=== PATIENT | female | born 1965 | race African-American/Black ===

== ENCOUNTER 2016-09-05 14:59 | Inpatient (IN) ==
[2016-09-05] MEDS ORDERED: NARCAN ONE ×2 (15:00)
[2016-09-05] MEDS ORDERED: AMMONIA AROMATIC ONE ×3 (15:00→15:26)
[2016-09-05 15:42] LABS: BE 1.7 mmoll (-3.0-3.0); BLOOD TYPE ARTERIAL; DRAW SITE R RADIAL; METHB 0.8 % (0.0-1.5); O2(CT) 16.5 mL/dL (15.0-23.0); PCO2(98.6) 45 mmHg (35-45); PO2(98.6) 50 mmHg (60-100); SAMPLE BLOOD; SAO2 87.1 % (95.0-100.0); THB 13.9 g/dL (11.5-17.4); pH(98.6) 7.39 (7.35-7.45)
[2016-09-05 15:43] LABS: BASO% 0.6 % (0.0-0.8); EOS# 0.16 X1000 (0.0-0.7); EOS% 1.6 % (0.0-10.0); HEMATOCRIT 43.2 % (37.0-47.0); HEMOGLOBIN 13.7 g/dL (12.0-16.0); IMM GRAN# 0.03 X1000 (0.0-0.04); IMM GRAN% 0.3 % (0.0-0.5); LYMPH# 1.58 X1000 (1.2-3.4); LYMPH% 15.9 % (20.5-51.1); MANUAL DIFF NEEDED? NO; MCH 22.8 PG (27-31); MCHC 31.7 g/dL (33-37); MONO# 0.72 X1000 (0.11-0.59); MONO% 7.2 % (1.7-9.3); MPV 11.5 FL (7.4-10.4); NEUT% 74.4 % (42.2-75.2); PLT 337 X1000 (130-400)
[2016-09-05 15:54] LABS: MODALITY ROOM AIR
[2016-09-05 16:00] LABS: INR 0.99 (0.86-1.15); PROTIME 13.4 Seconds (12.1-15.5)
[2016-09-05 16:01] LABS: PTT PL 33.1 Seconds (22.6-43.9)
[2016-09-05 16:05] LABS: CALCIUM 9.6 mg/dL (8.8-10.2); POTASSIUM 3.4 mmol/L (3.5-5.1); TOTAL BILIRUBIN 0.4 mg/dL (0.20-1.00); TOTAL PROTEIN 7.5 g/dL (6.3-8.3)
--- NOTE | 2016-09-05 16:14 | Diag Imaging Result Doc PS360 ---
EXAM: CHEST-1 VIEW - 09/05/2016 HISTORY: AMS TECHNIQUE: AP supine chest COMPARISON: 10/19/2015 FINDINGS: Heart size is normal. There is apparent bilateral pulmonary fibrosis similar to the prior exam. There is apparent artifact from external tubing over the lateral left midlung. There is no dense consolidation, pleural effusion, or pneumothorax identified. IMPRESSION: Bilateral pulmonary fibrosis. Apparent artifact from external tubing over lateral left midlung. Follow-up is recommended when patient's condition permits. No other acute changes. Electronically signed by Davidson Bond 09/05/2016 4:11 PM
[2016-09-05 16:19] LABS: CK INDEX 1.8 (0.0-2.5); CK-MB 24.76 ng/mL (0.0-5.0)
--- NOTE | 2016-09-05 16:19 | Diag Imaging Result Doc PS360 ---
EXAM: HEAD W/O CONTRAST - 09/05/2016 HISTORY: AMS TECHNIQUE: Dose reduction protocol COMPARISON: 06/12/2016 FINDINGS: There is no evidence of intracranial hemorrhage, mass effect, midline shift, or hydrocephalus. There is no infarct identified, although acute infarcts may not be immediately visible. There is no skull fracture. Visualized portions of paranasal sinuses appear clear. There is apparent chronic opacification of the inferior portion of the left middle ear noted. IMPRESSION: No visible acute intracranial abnormality. No hemorrhage or mass effect. Electronically signed by Davidson Bond 09/05/2016 4:17 PM
[2016-09-05] MEDS ORDERED: ROMAZICON IV ONE (16:46)
[2016-09-05] MEDS ORDERED: ROMAZICON ONE (16:48)
[2016-09-05 17:22] LABS: URINE CULTURE PL NEEDED? NO
[2016-09-05 17:47] LABS: UR AMPHETAMINES QUAL NONE DETECTED (NONE DETECT); UR BARBITUATES QUAL NONE DETECTED (NONE DETECT); UR BENZODIAZEPIN QUAL NONE DETECTED (NONE DETECT); UR CANNABINOIDS QUAL NONE DETECTED (NONE DETECT); UR COCAINE QUAL NONE DETECTED (NONE DETECT); UR MDMA QUAL NONE DETECTED (NONE DETECT); UR METHADONE QUAL NONE DETECTED (NONE DETECT); UR METHAMPHETAMINE QUAL NONE DETECTED (NONE DETECT); UR OPIATES QUAL NONE DETECTED (NONE DETECT); UR OXYCODONE QUAL NONE DETECTED (NONE DETECT); UR PCP QUAL NONE DETECTED (NONE DETECT); UR TCA QUAL NONE DETECTED (NONE DETECT)
[2016-09-05 17:48] LABS: BILIRUBIN URINE NEGATIVE (NEGATIVE); BLOOD URINE NEGATIVE (NEGATIVE); CLARITY CLEAR (CLEAR); COLOR YELLOW; GLUCOSE URINE NEGATIVE (NEGATIVE); LEUKOCYTES URINE NEGATIVE (NEGATIVE); NITRITE URINE NEGATIVE (NEGATIVE); PROTEIN URINE NEGATIVE (NEGATIVE); SP GRAVITY URINE 1.015; UROBILINOGEN URINE NORMAL
[2016-09-05 18:10] LABS: URINE EPITHELIAL CELLS <10 /HPF (<10); URINE RBC <10 /HPF (<10); URINE SOURCE CLEAN CATCH; URINE WBC <10 /HPF (<10)
--- NOTE | 2016-09-05 18:12 | PROVIDER DOCUMENTATION ---
This chart was entered by Yaritza Wellington Scribe, acting as scribe for Cecelia Zacarias MD. HPI-Neurological Disorder - General Chief Complaint: Altered Mental Status Stated Complaint: ams Time Seen by Provider: 09/05/16 15:14 Source: patient Allergies/Adverse Reactions: Patient Allergies Allergy/AdvReac Type Severity Reaction Status Date / Time butorphanol tartrate * Allergy Mild ITCHING Verified 06/12/16 01:18 [From Stadol] Home Medications: Home Medication List Medication Instructions Recorded Confirmed Last Taken Type Duloxetine [Cymbalta] 60 mg PO DAILY 12/04/11 09/05/16 10/19/15 06:00 History Carvedilol [Coreg] 12.5 mg PO BID 02/26/12 09/05/16 10/19/15 06:00 History Promethazine [Phenergan] 25 mg PO Q4H PRN PRN 12/01/14 09/05/16 09/11/15 07:00 History Baclofen 10 mg PO BID #0 09/14/15 09/05/16 10/19/15 06:00 Rx Linaclotide [Linzess] 145 mcg PO DAILY 10/19/15 09/05/16 03/19/16 History Buprenorphine HCl [Subutex] 8 mg SL TID #0 10/23/15 09/05/16 10/19/15 06:00 Rx Spironolactone [Aldactone] 25 mg PO DAILY #30 tablet 10/23/15 09/05/16 Unknown Rx Clonazepam [Klonopin] 1 mg PO TID 03/20/16 09/05/16 Unknown History Cyclobenzaprine [Flexeril] 10 mg PO TID 03/20/16 09/05/16 Unknown History Furosemide [Lasix] 40 mg PO DAILY 03/20/16 09/05/16 05/25/16 08:00 History Ipratropium/Albuterol INH 1 puff INH [id number] 03/20/16 09/05/16 Unknown History [Combivent Respimat Inhaler] Naproxen 500 mg PO BID 03/20/16 09/05/16 05/25/16 08:00 History Ranitidine [Zantac] 150 mg PO BID 03/20/16 09/05/16 Unknown History Ropinirole HCl 0.5 mg PO QHS 03/20/16 09/05/16 Unknown History Sildenafil [Revatio] 20 mg PO TID 03/20/16 09/05/16 Unknown History Prednisone [Deltasone] 20 mg PO DIRECTED #12 tablet 05/25/16 09/05/16 Unknown Rx Potassium Chloride E.r. [Micro-K] 10 meq PO TID 09/05/16 09/05/16 Unknown History - History of Present Illness-Neuro Nature of Presenting Problem: Pt is 50 y/o F presents to the ED with AMS. Pt was woke with ammonia in ED. Pt is confused. Pt states she took some subutex. Pt also stated she was taking turkey legs. Pt denies marijuana and meth. Headache Location: denies: frontal, temporal, occipital, parietal, global Severity: reports: moderate Onset/Duration: reports: just prior to arrival Timing: reports: improving Context: reports: other (AMS) Character of Altered Mental Status: reports: confused Any recent trauma/injury?: reports: none New weakness or altered sensation location:: reports: none Cognitive Baseline: alert, oriented x3 Gait Baseline: walks without assistance Associated Symptoms: reports: denies symptoms Similar Symptoms Previously?: Yes Recently seen or treated by another doctor?: No Review of Systems - Adult - REVIEW OF SYSTEMS - ADULT Constitutional: reports: no symptoms reported Eyes: reports: no symptoms reported Ears, Nose, Mouth & Throat: reports: no symptoms reported Cardiovascular: reports: no symptoms reported Respiratory: reports: no symptoms reported Gastrointestinal: reports: no symptoms reported Genitourinary: reports: no symptoms reported Musculoskeletal: reports: no symptoms reported Integumentary: reports: no symptoms reported Neurological: reports: other (AMS). denies: dizziness/vertigo, headache/ migraines, numbness, syncope Psychiatric: reports: no symptoms reported Endocrine: reports: no symptoms reported Hematologic/Lymphatic: reports: no symptoms reported Allergic/Immunologic: reports: no symptoms reported All Other Systems: Reviewed and Negative Past History - Adult - PAST MEDICAL HISTORY-ADULT Review of Records: reports: Nursing Assessment Review, Medications Reviewed, Social history reviewed & non-contributory. Major Childhood Illnesses: reports: denies history Cardiovascular: reports: CHF, HTN, hyperlipidemia Respiratory: reports: asthma, COPD, lung disease, sleep apnea, other ( sarcoidosis, pulmonary fibrosis) Gastrointestinal: reports: GERD, hemorrhoids Obstetrical/Gynecological: reports: denies history Genitourinary: reports: denies history Musculoskeletal: reports: other (fibromyalgia) Neurological: reports: denies history Psychiatric: reports: anxiety, depression Endocrine/Immune: reports: denies history Other Conditions: reports: denies history - PRIOR SURGERIES/PROCEDURES Surgical/Procedure History: reports: cholecystectomy, hysterectomy - PRIOR HOSPITALIZATIONS Prior Hospitalizations: reports: for similar symptoms - IMMUNIZATION STATUS Childhood Immunizations: See Nurse Assessment Flu Vaccine: See Nurse Assessment - FAMILY HISTORY Family History: reviewed, not pertinent - SOCIAL HISTORY Smoking: cigarettes, less than 1 pack/day Provider spent 3-5 mins advising pt. on dangers of tobacco.: Discussed manners to quit use, and f/u contacts for add'l counseling. 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 negative: aphasia, facial droop Integumentary: normal color, normal turgor, warm/dry Psych/Mental Status: disheveled, paranoid Progress - PLAN OF CARE/RESULTS Progress/Plan/Lab Results: Vital Signs - 8 hr 09/05/16 15:00 Temperature 97.1 F L Pulse Rate 98 H Respiratory Rate 20 Blood Pressure 137/85 O2 Sat by Pulse Oximetry 95 Laboratory Results - last 24 hr 09/05/16 09/05/16 09/05/16 15:02 15:20 15:20 WBC RBC Hgb Hct MCV MCH MCHC RDW Std Deviation Plt Count MPV Immature Gran % (Auto) Neut % (Auto) Lymph % (Auto) Hayes % (Auto) Eos % (Auto) Baso % (Auto) Immature Gran # (Auto) Neut # (Auto) Lymph # (Auto) Hayes # (Auto) Eos # (Auto) Baso # (Auto) PT INR APTT (Factor Assay) Specimen Type Sample Site pH pCO2 pO2 HCO3 Base Excess Oxyhemoglobin ABG O2 Sat (Calculated) ABG O2 Saturation ABG Carboxyhemoglobin ABG Methemoglobin A-a O2 Difference Total Hemoglobin Lactate Blood Gas Modality FiO2 % Sodium 143 Potassium 3.4 L Chloride 96 L Carbon Dioxide 27 Anion Gap 20 BUN 25 H Creatinine 1.5 H Estimated GFR/1.73 m2 36 BUN/Creatinine Ratio 17 Glucose 92 POC Glucose 91 Calculated Osmolality 289 Calcium 9.6 Total Bilirubin 0.40 AST 49 H ALT 26 Alkaline Phosphatase 164 H Creatine Kinase 1401 H Creatine Kinase Index 1.8 CK-MB (CK-2) 24.76 H Troponin T < 0.010 Total Protein 7.5 Albumin 4.0 Globulin 4.0 Albumin/Globulin Ratio 1.0 Plasma Lactate Urine Color Urine Clarity Urine pH Ur Specific [place] Urine Protein Urine Ketones Urine Blood Urine Nitrite Urine Bilirubin Urine Urobilinogen Urine WBC Urine Glucose Urine Opiates Screen Ur Oxycodone Screen Urine Methadone Screen Ur Barbituates Screen Ur Tricyclics Screen Ur Phencyclidine Scrn Ur Amphetamines Screen U Methamphetamines Scrn Urine MDMA Screen U Benzodiazepines Scrn Urine Cocaine Screen U Cannabinoids Screen Plasma/Serum Ethyl Alc 09/05/16 09/05/16 09/05/16 15:20 15:20 15:20 WBC 9.96 RBC 6.00 H Hgb 13.7 Hct 43.2 MCV 72.0 L MCH 22.8 L MCHC 31.7 L RDW Std Deviation 14.5 Plt Count 337 MPV 11.5 H Immature Gran % (Auto) 0.3 Neut % (Auto) 74.4 Lymph % (Auto) 15.9 L Hayes % (Auto) 7.2 Eos % (Auto) 1.6 Baso % (Auto) 0.6 Immature Gran # (Auto) 0.03 Neut # (Auto) 7.41 H Lymph # (Auto) 1.58 Hayes # (Auto) 0.72 H Eos # (Auto) 0.16 Baso # (Auto) 0.06 PT 13.4 INR 0.99 APTT (Factor Assay) 33.1 Specimen Type Sample Site pH pCO2 pO2 HCO3 Base Excess Oxyhemoglobin ABG O2 Sat (Calculated) ABG O2 Saturation ABG Carboxyhemoglobin ABG Methemoglobin A-a O2 Difference Total Hemoglobin Lactate Blood Gas Modality FiO2 % Sodium Potassium Chloride Carbon Dioxide Anion Gap BUN Creatinine Estimated GFR/1.73 m2 BUN/Creatinine Ratio Glucose POC Glucose Calculated Osmolality Calcium Total Bilirubin AST ALT Alkaline Phosphatase Creatine Kinase Creatine Kinase Index CK-MB (CK-2) Troponin T Total Protein Albumin Globulin Albumin/Globulin Ratio Plasma Lactate Urine Color Urine Clarity Urine pH Ur Specific [place] Urine Protein Urine Ketones Urine Blood Urine Nitrite Urine Bilirubin Urine Urobilinogen Urine WBC Urine Glucose Urine Opiates Screen Ur Oxycodone Screen Urine Methadone Screen Ur Barbituates Screen Ur Tricyclics Screen Ur Phencyclidine Scrn Ur Amphetamines Screen U Methamphetamines Scrn Urine MDMA Screen U Benzodiazepines Scrn Urine Cocaine Screen U Cannabinoids Screen Plasma/Serum Ethyl Alc 09/05/16 09/05/16 09/05/16 15:33 16:17 17:21 WBC RBC Hgb Hct MCV MCH MCHC RDW Std Deviation Plt Count MPV Immature Gran % (Auto) Neut % (Auto) Lymph % (Auto) Hayes % (Auto) Eos % (Auto) Baso % (Auto) Immature Gran # (Auto) Neut # (Auto) Lymph # (Auto) Hayes # (Auto) Eos # (Auto) Baso # (Auto) PT INR APTT (Factor Assay) Specimen Type ARTERIAL Sample Site R RADIAL pH 7.39 pCO2 45 pO2 50 L HCO3 25.9 Base Excess 1.7 Oxyhemoglobin 84.5 L* ABG O2 Sat (Calculated) 16.5 ABG O2 Saturation 87.1 L ABG Carboxyhemoglobin 2.20 ABG Methemoglobin 0.8 A-a O2 Difference 43.0 Total Hemoglobin 13.9 Lactate 1.10 Blood Gas Modality ROOM AIR FiO2 % 21.0 Sodium Potassium Chloride Carbon Dioxide Anion Gap BUN Creatinine Estimated GFR/1.73 m2 BUN/Creatinine Ratio Glucose POC Glucose Calculated Osmolality Calcium Total Bilirubin AST ALT Alkaline Phosphatase Creatine Kinase Creatine Kinase Index CK-MB (CK-2) Troponin T Total Protein Albumin Globulin Albumin/Globulin Ratio Plasma Lactate 1.2 Urine Color YELLOW Urine Clarity CLEAR Urine pH 5.0 Ur Specific [place] 1.015 Urine Protein NEGATIVE Urine Ketones TRACE Urine Blood NEGATIVE Urine Nitrite NEGATIVE Urine Bilirubin NEGATIVE Urine Urobilinogen NORMAL Urine WBC NEGATIVE Urine Glucose NEGATIVE Urine Opiates Screen Ur Oxycodone Screen Urine Methadone Screen Ur Barbituates Screen Ur Tricyclics Screen Ur Phencyclidine Scrn Ur Amphetamines Screen U Methamphetamines Scrn Urine MDMA Screen U Benzodiazepines Scrn Urine Cocaine Screen U Cannabinoids Screen Plasma/Serum Ethyl Alc 09/05/16 17:21 WBC RBC Hgb Hct MCV MCH MCHC RDW Std Deviation Plt Count MPV Immature Gran % (Auto) Neut % (Auto) Lymph % (Auto) Hayes % (Auto) Eos % (Auto) Baso % (Auto) Immature Gran # (Auto) Neut # (Auto) Lymph # (Auto) Hayes # (Auto) Eos # (Auto) Baso # (Auto) PT INR APTT (Factor Assay) Specimen Type Sample Site pH pCO2 pO2 HCO3 Base Excess Oxyhemoglobin ABG O2 Sat (Calculated) ABG O2 Saturation ABG Carboxyhemoglobin ABG Methemoglobin A-a O2 Difference Total Hemoglobin Lactate Blood Gas Modality FiO2 % Sodium Potassium Chloride Carbon Dioxide Anion Gap BUN Creatinine Estimated GFR/1.73 m2 BUN/Creatinine Ratio Glucose POC Glucose Calculated Osmolality Calcium Total Bilirubin AST ALT Alkaline Phosphatase Creatine Kinase Creatine Kinase Index CK-MB (CK-2) Troponin T Total Protein Albumin Globulin Albumin/Globulin Ratio Plasma Lactate Urine Color Urine Clarity Urine pH Ur Specific [place] Urine Protein Urine Ketones Urine Blood Urine Nitrite Urine Bilirubin Urine Urobilinogen Urine WBC Urine Glucose Urine Opiates Screen NONE DETECTED Ur Oxycodone Screen NONE DETECTED Urine Methadone Screen NONE DETECTED Ur Barbituates Screen NONE DETECTED Ur Tricyclics Screen NONE DETECTED Ur Phencyclidine Scrn NONE DETECTED Ur Amphetamines Screen NONE DETECTED U Methamphetamines Scrn NONE DETECTED Urine MDMA Screen NONE DETECTED U Benzodiazepines Scrn NONE DETECTED Urine Cocaine Screen NONE DETECTED U Cannabinoids Screen NONE DETECTED Plasma/Serum Ethyl Alc Orders Category Date Time Status Cardiac Monitoring DIRECTED Care 09/05/16 15:23 Active Finger Stick Blood Sugar (ED) DIRECTED Care 09/05/16 15:23 Active Misc. NRSG Communication Order DIRECTED Care 09/05/16 15:23 Active Oxygen Therapy- ED Nursing DIRECTED Care 09/05/16 15:23 Active Saline Loc NOW Care 09/05/16 15:23 Active CHEST-1 VIEW [RAD] Stat Exams 09/05/16 15:23 Completed HEAD W/O CONTRAST [CT] Stat Exams 09/05/16 15:24 Completed ABG [RESP] Routine Lab 09/05/16 15:33 Results ALCOHOL BLOOD Stat Lab 09/05/16 15:20 Completed CBC WITH ELECTRONIC DIFF [HEME] Stat Lab 09/05/16 15:20 Completed CK PROFILE [SP CHEM] Stat Lab 09/05/16 15:20 Completed COMPREHENSIVE METABOLIC PANEL [CHEM] Stat Lab 09/05/16 15:20 Completed LACTATE, PLASMA [CHEM] Stat Lab 09/05/16 16:17 Completed PR[address]IME WITH INR PL [COAG] Stat Lab 09/05/16 15:[address] [COAG] Stat Lab 09/05/16 15:20 Completed TROPONIN T Stat Lab 09/05/16 15:[address] W/POSS RFLX CULT [URINALYSIS] Stat Lab 09/05/16 17:21 Results [address]INE DRUG SCREEN [address] Stat Lab 09/05/16 17:21 Completed Ammonia, Aromatic [Ammonia Aromatic] Med 09/05/16 15:26 Discontinued 1 each .ROUTE .STK-MED ONE Flumazenil [Romazicon] Med 09/05/16 16:46 Discontinued 0.2 mg IV NOW ONE Flumazenil [Romazicon] Med 09/05/16 16:48 Discontinued 0.5 mg .ROUTE .STK-MED ONE Pulse Oximetry Stat Oth 09/05/16 15:23 Active EKG [EKG] Stat Ther 09/05/16 15:23 Ordered Transfer/Admit Order [TRANSFER] Routine Transfer 09/05/16 17:22 Ordered Result Diagrams: 09/05/16 15:20 09/05/16 15:20 - EKG 1 Time of EKG reading by physician:: 17:24 EKG Read and Signed by:: Cecelia Zacarias EKG Interpretation (*Must complete 3 of following elements*): Abnormal ( pulmonary disease pattern; prolonged QT) Rate: 89 Rhythm: normal sinus rhythm Comments: possible left atrial enlargement; left axis deviation; - XRAY 1 XRAY Study: Chest Impression: Abnormal (bilateral pulmonary fibrosis. apparent artifact from external tubing over lateral left midlung.) - CT/MRI 1 CT Study: Head Impression: Abnormal CT Results: no visible acute intracranial abnormality. no hemorrhage or mass effect. - CONSULTS/PCP/HOSPITALIST Notification #1 *Consult/PCP/Hospitalist*: Dr. Dawn Time Discussed: 16:54 Reason/Comments: Dr. Zacarias consulted with Dr. Dawn about PT Consult Disposition: Admit Departure - Departure Date of Disposition Decision: 09/05/16 Time of Disposition Decision: 16:54 DIAGNOSIS: Altered mental status Disposition: ADMITTED INPATIENT 09 Certified Medical Emergency: Emergent Condition: Stable - Critical Care Note This patient required my direct & personal management of CC.: No This chart was documented by the indicated scribe, (Yaritza Wellington Scribe) and accurately reflects the services I performed and decisions made by me, Cecelia Zacarias MD, as attested by the provider's signature.
--- NOTE | 2016-09-05 19:04 | EKG Report ---
Test Performed on : 09/05/2016 5:24:53 PM Test Reason : AMS Blood Pressure : / mmHG Vent. Rate : 089 BPM Atrial Rate : 089 BPM P-R Int : 166 ms QRS Dur : 086 ms QT Int : 408 ms P-R-T Axes : 082 -41 053 degrees QTc Int : 496 ms Normal sinus rhythm. Possible Left atrial enlargement Left axis deviation Pulmonary disease pattern Prolonged QT Abnormal ECG When compared with ECG of 21-OCT-2015 11:39, T wave inversion no longer evident in Inferior leads Unconfirmed Result
[2016-09-05] MEDS: NS 1,000 ML IV SCH (19:55)
[2016-09-05] MEDS ORDERED: PROTONIX IV SCH (20:00)
[2016-09-05] MEDS ORDERED: SODIUM CHLORIDE 0.9% INJ SCH (20:00)
[2016-09-05] MEDS ORDERED: COREG PO SCH (21:00)
[2016-09-05] MEDS: DUONEB (A & A) INH SCH (21:31)
--- NOTE | 2016-09-05 22:30 | HISTORY AND PHYSICAL ---
CHIEF COMPLAINT: Unresponsive. HISTORY OF PRESENT ILLNESS: This is a 50-year-old female who presented to the emergency room via EMS after being found unresponsive by her sister. On arrival to the emergency room, according to the records the patient was confused, she was altered. Records do state that the patient did arouse with after having ammonia capsules and her speech was garbled at that time. It is said that states in her triage that she hit her head on the table although on my interview she states she did not hurt herself. When asked about her medications each of us have been given different accounts of her medicines. She did tell me that she took her medicines all at once as she normally does and "I went to sleep and woke up standing up." The sister is present to give some history although is unaware of any details of this incident. A CT of the head revealed no acute processes. In the emergency room she received Romazicon and is being admitted for further evaluation and treatment. PAST MEDICAL HISTORY: Sarcoid spinal stenosis, tobacco dependence, pulmonary hypertension, fibromyalgia, congestive heart failure with an EF of 60-65% in August 2015, restless legs syndrome, chronic constipation, gastroesophageal reflux disease, COPD, anxiety disorder. PAST SURGICAL HISTORY: Hysterectomy, cholecystectomy. SOCIAL HISTORY: She lives alone. She smokes cigarettes. She does take prescription medications. She denies any [id number] or illicit drugs. She denies any alcohol use. ALLERGIES: Stadol which causes itching. HOME MEDICATIONS: A list will be obtained. REVIEW OF SYSTEMS: Unable to obtain from the patient. PHYSICAL EXAMINATION: GENERAL: This is a 50-year-old female who is lying in the bed in no distress. HEENT: Head is normocephalic, atraumatic. Pupils are equal, round, react to light. EOMs are intact. Sclerae anicteric. Mucous membranes are dry. NECK: Supple. Trachea midline. CARDIOVASCULAR: Regular rate and rhythm. S1 and S2 appreciated. PULMONARY: Breath sounds are clear. No increased work of breathing noted. GASTROINTESTINAL: Soft, nontender, nondistended. Bowel sounds in all 4 quadrants. MUSCULOSKELETAL: Good range of motion of joints. EXTREMITIES: No clubbing, cyanosis, or edema. Calves are nontender. Pulses are palpable x4. NEUROLOGIC: She is lethargic but with stimulation she does arouse. She does answer questions. She knows she is at [facility]. She is aware of her sister. She is confused on the date and time. She does follow commands. She does once stimulation is stopped she does return to sleep. LABS: WBC is 9.9 with hemoglobin 13.7, hematocrit 43.2, platelets 337,000. Sodium is 143, potassium 3.4, BUN 25, creatinine 1.5 with a glucose of 92. CPK is 1401 with a CK-MB of 24.76 with a troponin of less than 0.010. Urine drug screen is negative and urinalysis is essentially negative. CT of the head reveals no acute processes. Chest x-ray reveals bilateral pulmonary fibrosis. ASSESSMENT AND PLAN: 1. Altered mental status. Causes could be multifactorial. Patient does take narcotics and other altered medications. We will identify but we will hold her medications at present. Will continue neuro checks every 4 hours. At 1 part in the chart the patient states that she fell and hit her head. 2. Rhabdomyolysis. Will trend CPK, hydrate 3. Hypokalemia. We will trend labs and replete as appropriate. 4. Acute kidney injury. We will hydrate, hold any renal toxic medications and trend labs. 5. Diabetes type 2. She will be placed on pattern blood glucose with sliding scale insulin. 6. History of congestive heart failure. Stable. 7. Pulmonary hypertension. Aware. 8. Hypertension controlled. 9. Anxiety disorder. Aware. 10. Chronic constipation. 11. Gastroesophageal reflux disease. PLAN: She will be admitted to ICU. Neuro checks every 4 hours. She will be placed on telemetry. Will gently hydrate and trend labs. As stated above, will hold any renal toxic medications. For DVT prophylaxis will use SCDs. Will hold any anticoagulation as there is a question of her falling. GI prophylaxis will give Protonix. She will remain NPO at present. Will repeat labs in the morning. Dictated by GEORGE Escudero for Burt Dawn MD cc: EGORGE Escudero MD
[2016-09-05 23:53] LABS: CALCIUM 8.9 mg/dL (8.8-10.2); POTASSIUM 3.1 mmol/L (3.5-5.1)
[2016-09-06] MEDS: DUONEB (A & A) INH SCH ×2 (03:04→10:40)
[2016-09-06 07:07] LABS: ALBUMIN 3.6 g/dL (3.5-5.0); CALCIUM 8.8 mg/dL (8.8-10.2); POTASSIUM 2.7 mmol/L (3.5-5.1); TOTAL BILIRUBIN 0.4 mg/dL (0.20-1.00); TOTAL PROTEIN 6.7 g/dL (6.3-8.3)
[2016-09-06 07:09] LABS: HEMATOCRIT 39.4 % (37.0-47.0); MCH 22.6 PG (27-31); MCHC 30.5 g/dL (33-37); MCV 74.1 FL (81-99); MPV 11.7 FL (7.4-10.4); RBC 5.32 XMIL (4.2-5.4)
[2016-09-06 08:14] VITALS: BP 115/71
[2016-09-06] MEDS ORDERED: KLOR-CON PO ONE (08:45)
[2016-09-06] MEDS: NS 1,000 ML IV SCH (09:39)
--- NOTE | 2016-09-08 05:43 | DISCHARGE SUMMARY ---
ADMISSION DATE: 09/05/2016 DISCHARGE DATE: 09/06/2016 PRIMARY CARE PHYSICIAN: Dr. Mani Negron. DIAGNOSES: 1. Unresponsive, resolved. 2. Altered mental status, resolved. 3. Rhabdomyolysis, resolving. 4. Hypokalemia, resolved. 5. Acute kidney injury in the setting of chronic kidney disease. 6. Diabetes type 2. 7. Pulmonary hypertension. 8. Hypertension. 9. Anxiety disorder. 10. History of medical noncompliance with misuse/overdose in the past. DIAGNOSTICS: CT of the head revealed no visible intracranial abnormality, no hemorrhage, or mass effect. HOSPITAL COURSE: Ms. Wiggins presented to the emergency room after being found unresponsive by her sister. We are not sure of events as Ms. Wiggins is unable other than the sister finding her unresponsive. She was given Romazicon in the emergency room with no change in mental status. She did awake to ammonia capsules, then drifted back to sleep. At the time of my examination, she would awake with tactile stimulation, answer questions in short sentences, some were appropriate. Over the next 24 hours, she did awake, return to her normal mental status, being alert and oriented x3 with no neurologic deficits. Her only recollection of the events was waking up in the hospital. She did receive IV hydration as well as electrolyte repletion, with DuoNebs. We did hold all of her home medications except her Coreg due to her mental status. During the hospitalization, vital signs were stable. She was in sinus rhythm with no ectopy. DISCHARGE PHYSICAL EXAMINATION: Cardiovascular: Regular rate and rhythm. S1 and S2 are appreciated. Pulmonary: Breath sounds are clear with no increased work of breathing noted. Gastrointestinal: Abdomen is soft, nontender, nondistended with bowel sounds in all 4 quadrants. Extremities: No clubbing, cyanosis, or edema. Calves are nontender. Pulses are palpable x4. Neurologic: She is alert and oriented x3 with cranial nerves 2-12 grossly intact. DISCHARGE MEDICATIONS: Daliresp 500 mcg p.o. daily, baclofen 10 mg t.i.d., Phenergan 25 q.6 hours p.r.n., Subutex 8 four times a day, sildenafil 20 mg t.i.d., ropinirole 0.5 at bedtime, Zantac 150 p.o. b.i.d., Linzess 145 mcg daily, Combivent inhaler 1 puff q.6 hours, Cymbalta 60 mg daily, Flexeril 10 t.i.d., Klonopin 1 mg t.i.d., Coreg 12.5 b.i.d., and Micro-K 10 mEq daily. DISCHARGE INSTRUCTIONS: Ms. Wiggins did have a creatinine of 1.5 on admission. It did decrease to 1.1. She has no history of chronic kidney disease. I did discuss this with her primary care physician, Dr. Mani Negron, who it was agreed that we would instruct the patient to hold Lasix, Aldactone, Naprosyn until September 08 at 10:30 scheduled appointment. At this time, labs can be redrawn and Dr. Negron will instruct her on restarting or holding these medications. We did decrease her Micro-K from 3 pills a day to 1. FOLLOWUP: Dr. Negron on 09/08/2016 at 10:30. DISPOSITION: She is being discharged home in stable condition with her sister. This is a 45 minute discharge. Dictated by GEORGE Escudero for Burt Dawn MD cc: GEORGE Escudero MD
== END 2016-09-06 14:10 | disposition home or self-care (01) ==
LOC: P.ED 14:59 → P.ICU 17:41
PROVIDERS: ATTEND Family Medicine

== ENCOUNTER 2016-10-30 03:27 | Inpatient (IN) ==
[2016-10-30] MEDS ORDERED: ZOFRAN ONE (03:33)
[2016-10-30] MEDS ORDERED: ZOFRAN IV ONE (03:33)
[2016-10-30 04:09] LABS: BASO% 1.3 % (0.0-0.8); EOS# 0.19 X1000 (0.0-0.7); EOS% 2.6 % (0.0-10.0); HEMATOCRIT 39.1 % (37.0-47.0); HEMOGLOBIN 12.4 g/dL (12.0-16.0); IMM GRAN# 0.01 X1000 (0.0-0.04); IMM GRAN% 0.1 % (0.0-0.5); LYMPH# 1.64 X1000 (1.2-3.4); LYMPH% 22.8 % (20.5-51.1); MANUAL DIFF NEEDED? NO; MCH 22.1 PG (27-31); MCHC 31.7 g/dL (33-37); MCV 69.7 FL (81-99); MONO# 0.74 X1000 (0.11-0.59); MONO% 10.3 % (1.7-9.3); MPV 10.7 FL (7.4-10.4); NEUT% 62.9 % (42.2-75.2); PLT 342 X1000 (130-400); RBC 5.61 XMIL (4.2-5.4)
[2016-10-30 04:09] LABS: UR AMPHETAMINES QUAL NONE DETECTED (NONE DETECT); UR BARBITUATES QUAL NONE DETECTED (NONE DETECT); UR BENZODIAZEPIN QUAL PRESUMPTIVE POSITIVE (NONE DETECT); UR CANNABINOIDS QUAL NONE DETECTED (NONE DETECT); UR COCAINE QUAL NONE DETECTED (NONE DETECT); UR MDMA QUAL NONE DETECTED (NONE DETECT); UR METHADONE QUAL NONE DETECTED (NONE DETECT); UR METHAMPHETAMINE QUAL NONE DETECTED (NONE DETECT); UR OPIATES QUAL NONE DETECTED (NONE DETECT); UR OXYCODONE QUAL NONE DETECTED (NONE DETECT); UR PCP QUAL NONE DETECTED (NONE DETECT); UR TCA QUAL NONE DETECTED (NONE DETECT)
--- NOTE | 2016-10-30 04:13 | PROVIDER DOCUMENTATION ---
[facility] Abuse/Overdose - General Chief Complaint: Overdose Stated Complaint: AMS Time Seen by Provider: 10/30/16 03:40 Source: EMS Unable to obtain history due to:: urgency Allergies/Adverse Reactions: Allergies Allergy/AdvReac Type Severity Reaction Status Date / Time butorphanol tartrate * Allergy Mild ITCHING Verified 06/12/16 01:18 [From Stadol] Home Medications: Home Medication List Medication Instructions Recorded Confirmed Last Taken Type Duloxetine [Cymbalta] 60 mg PO DAILY 12/04/11 10/31/16 10/19/15 06:00 History Carvedilol [Coreg] 12.5 mg PO BID 02/26/12 10/30/16 10/19/15 06:00 History Promethazine [Phenergan] 25 mg PO BID 12/01/14 10/31/16 09/11/15 07:00 History Linaclotide [Linzess] 145 mcg PO DAILY 10/19/15 10/31/16 03/19/16 History Clonazepam [Klonopin] 1 mg PO TID 03/20/16 10/30/16 Unknown History Ipratropium/Albuterol INH 1 puff INH RTQ6H 03/20/16 10/30/16 Unknown History [Combivent Respimat Inhaler] Ranitidine [Zantac] 150 mg PO BID 03/20/16 10/30/16 Unknown History Ropinirole HCl 0.5 mg PO QHS 03/20/16 10/31/16 Unknown History Sildenafil [Revatio] 20 mg PO TID 03/20/16 10/30/16 Unknown History Baclofen 20 mg PO TID 09/05/16 10/30/16 Unknown History Buprenorphine HCl [Subutex] 8 mg SL 4XDAY 09/05/16 10/30/16 Unknown History Roflumilast [Daliresp] 500 mcg PO DAILY 09/05/16 10/31/16 Unknown History Furosemide [Lasix] 2 tab PO DAILY 10/30/16 10/31/16 Unknown History Levofloxacin [Levaquin] 500 mg PO DAILY #7 tablet 10/31/16 Unknown Rx Methylprednisolone [Medrol Dosepak] 4 mg PO DIRECTED #1 package 10/31/16 Unknown Rx Naproxen [Naprosyn] 1 tab PO BID 10/31/16 10/31/16 Unknown History Potassium Chloride E.r. [Micro-K] 20 meq PO BID 10/31/16 10/31/16 Unknown History Spironolactone 25 mg PO DAILY 10/31/16 10/31/16 Unknown History - History of Present Illness-Drug/Alcohol Nature of Presenting Problem: Overdose patient. Found by a neighbor. Patient is somnolent, though hemodynamically stable. Was admitted 2 months ago for drug overdose. Situational problems related to:: reports: N/A Psychiatric Complaints: denies: denies symptoms Associated Symptoms: denies: denies symptoms Any injuries associated with this episode of intoxication?: No Similar Symptoms Previously?: Yes Recently seen or treated by another doctor?: No - Substance Abuse Substance Use: reports: alcohol, cocaine - Alcohol Abuse Usually drinks:: chronically Other alcohols?: reports: N/A - Detox/Hospitalizations Previous detox/rehab admissions?: No Currently enrolled in a Methadone Program?: No - Overdose Intentional drug overdose?: Yes Review of Systems - Adult - REVIEW OF SYSTEMS - ADULT Constitutional: reports: no symptoms reported Eyes: reports: no symptoms reported Ears, Nose, Mouth & Throat: reports: no symptoms reported Cardiovascular: reports: no symptoms reported Respiratory: reports: no symptoms reported Gastrointestinal: reports: no symptoms reported Genitourinary: reports: no symptoms reported Musculoskeletal: reports: no symptoms reported Integumentary: reports: no symptoms reported Neurological: reports: no symptoms reported Psychiatric: reports: no symptoms reported Endocrine: reports: no symptoms reported Hematologic/Lymphatic: reports: no symptoms reported Allergic/Immunologic: reports: no symptoms reported All Other Systems: Reviewed and Negative Past History - Adult - PAST MEDICAL HISTORY-ADULT Review of Records: reports: Old Records Reviewed, Nursing Assessment Review, Medications Reviewed, Social history reviewed & non-contributory. Major Childhood Illnesses: reports: denies history Cardiovascular: reports: CHF, HTN, hyperlipidemia Respiratory: reports: asthma, COPD, lung disease, sleep apnea, other ( sarcoidosis, pulmonary fibrosis) Gastrointestinal: reports: GERD, hemorrhoids Obstetrical/Gynecological: reports: denies history Genitourinary: reports: denies history Musculoskeletal: reports: other (fibromyalgia) Neurological: reports: denies history Psychiatric: reports: anxiety, depression Endocrine/Immune: reports: denies history Other Conditions: reports: denies history - PRIOR SURGERIES/PROCEDURES Surgical/Procedure History: reports: cholecystectomy, hysterectomy - PRIOR HOSPITALIZATIONS Prior Hospitalizations: reports: for similar symptoms - IMMUNIZATION STATUS Childhood Immunizations: See Nurse Assessment Flu Vaccine: See Nurse Assessment - FAMILY HISTORY Family History: reviewed, not pertinent Physical Exam-General - PHYSICAL EXAM-ADULT Initial Vital Signs Reviewed: Yes - CONSTITUTIONAL General Appearance: obtunded - EYES Eyes: PERRL/EOMI - HEAD, EARS, NOSE, MOUTH & THROAT HENMT: normocephalic/atraumatic, moist mucous membranes - NECK Neck: non-tender, full range of motion - RESPIRATORY Respiratory: chest non-tender, lungs clear, normal breath sounds - CARDIOVASCULAR Cardiovascular: normal peripheral pulses, regular rate, rhythm - GASTROINTESTINAL (ABDOMEN) Abdominal Exam: normal bowel sounds, non tender - LYMPHATIC Lymphatic: no adenopathy - MUSCULOSKELETAL Back Exam: normal inspection, no CVA tenderness Extremity: normal range of motion, non-tender - SKIN Integumentary: normal color, normal turgor - NEUROLOGIC Neurologic: manager ethics II-XII nml as tested, grossly normal - PSYCHIATRIC Psych/Mental Status: disoriented x 3 Progress - PLAN OF CARE/RESULTS Progress/Plan/Lab Results: Orders Category Date Time Status Admit - [facility] Routine AdmDCTranf 10/30/16 12:18 Ordered Activity - Bed Rest with BRP ORDERED Care 10/30/16 12:18 Active Cardiac Monitoring DIRECTED Care 10/30/16 03:41 Completed Finger Stick Blood Sugar (ED) DIRECTED Care 10/30/16 03:41 Completed Gregorio Cath Insertion ORDERED Care 10/30/16 03:46 Completed Neurological Check Q4H Care 10/30/16 12:19 Active Oxygen Therapy- ED Nursing DIRECTED Care 10/30/16 05:49 Completed Saline Loc DIRECTED Care 10/30/16 03:41 Active Vital Signs Order Q 8-HR .ASSESS Care 10/30/16 12:18 Active CHEST-1 VIEW [RAD] Stat Exams 10/30/16 07:[address] HEAD W/O CONTRAST [CT] Stat Exams 10/30/16 07:[address] THORAX/ABD/PELVIS W/O CONT [CT] Stat Exams 10/30/16 12:12 Completed ACETAMINOPHEN [TDM] Stat Lab 10/30/16 03:50 Completed ACETAMINOPHEN [TDM] Stat Lab 10/30/16 03:50 Completed ALCOHOL BLOOD Stat Lab 10/30/16 03:50 Completed CBC WITH ELECTRONIC DIFF [HEME] Stat Lab 10/30/16 03:50 Completed CK PROFILE [SP CHEM] Stat Lab 10/30/16 06:50 Completed CK PROFILE [SP CHEM] Stat Lab 10/30/16 07:40 Completed COMPREHENSIVE METABOLIC PANEL [CHEM] Stat Lab 10/30/16 03:50 Completed FERRITIN Stat Lab 10/30/16 12:18 Completed FOLATE Stat Lab 10/30/16 12:18 Completed LACTATE, PLASMA [CHEM] Stat Lab 10/30/16 07:40 Completed MAGNESIUM [CHEM] Stat Lab 10/30/16 06:50 Completed PRO B-NATRIURETIC PEPTIDE Stat Lab 10/30/16 06:50 Completed SALICYLATES [TDM] Stat Lab 10/30/16 03:50 Completed SALICYLATES [TDM] Stat Lab 10/30/16 03:50 Completed TROPONIN T Stat Lab 10/30/16 06:50 Completed TROPONIN T Stat Lab 10/30/16 07:40 Completed TSH Routine Lab 10/30/16 12:22 Completed UA NIMS W/REFLEX CULT PL [URINALYSIS] Stat Lab 10/30/16 03:46 Completed UIBC W TOTAL IRON [CHEM] Stat Lab 10/30/16 12:18 Completed URINE DRUG SCREEN PL Stat Lab 10/30/16 03:45 Completed VITAMIN B12 Routine Lab 10/31/16 06:10 Completed 0.9% Sodium Chloride Inj [Ns] 1,000 ml Med 10/30/16 08:42 Discontinued .ROUTE As Directed 0.9% Sodium Chloride Inj [Ns] 1,000 ml Med 10/30/16 11:13 Discontinued IV 150 mls/hr 0.9% Sodium Chloride Inj [Ns] 1,000 ml Med 10/30/16 08:41 Discontinued IV 999 mls/hr Enoxaparin [Lovenox] Med 10/31/16 09:00 Discontinued 40 mg SUBQ Q24H Ondansetron [Zofran] Med 10/30/16 03:33 Discontinued 4 mg .ROUTE .STK-MED ONE Ondansetron [Zofran] Med 10/30/16 03:33 Discontinued 4 mg IV NOW ONE Pulse Oximetry Stat Oth 10/30/16 03:41 Completed EKG [EKG] Stat Ther 10/30/16 03:41 Draft EKG [EKG] Stat Ther 10/30/16 07:14 Draft Transfer/Admit Order [TRANSFER] Routine Transfer 10/30/16 12:14 Completed Result Diagrams: 10/31/16 06:10 10/31/16 06:10 - EKG 1 EKG Interpretation (*Must complete 3 of following elements*): Normal [place]: normal Prior EKG Comparison: unchanged from prior Departure - Departure Date of Disposition Decision: 10/30/16 Time of Disposition Decision: 03:40 DIAGNOSIS: Drug overdose Disposition: ADMITTED INPATIENT 09 Certified Medical Emergency: Emergent Condition: Stable - Critical Care Note This patient required my direct & personal management of CC.: Yes Total Time (mins): 30 Critical Care Statement: This patient required my direct personal management to treat or rule out processes, the absence of which, could potentiallly result in sudden, clinically significant life or limb threatening deterioration. Attestation - Physician/ RANDEE Attestation The physician spent face to face time with patient:: Yes Advanced Practice Provider documentation review:: Supervising physician onsite and consulted in the evaluation and care of this patient. The physician did have a face to face encounter with the patient.
[2016-10-30 04:24] LABS: ACETAMINOPHEN < 1.2 ug/mL (10-30); AGAP 17; ALBUMIN 3.4 g/dL (3.5-5.0); ALKALINE PHOSPHATASE 169 U/L (32-104); BUN 15 mg/dL (8-22); CALCIUM 8.9 mg/dL (8.8-10.2); CHLORIDE 97 mmol/L (98-107); COSMO 276; GOT 19 U/L (10-30); GPT 12 U/L (10-36); POTASSIUM 3.8 mmol/L (3.5-5.1); SODIUM 138 mmol/L (136-145); TCO2 23 mmol/L (25-35); TOTAL PROTEIN 7.4 g/dL (6.3-8.3)
--- NOTE | 2016-10-30 04:35 | EKG Report ---
Test Performed on : 10/30/2016 04:10:06 AM Test Reason : Suspected Overdose Blood Pressure : / mmHG Vent. Rate : 076 BPM Atrial Rate : 076 BPM P-R Int : 164 ms QRS Dur : 088 ms QT Int : 416 ms P-R-T Axes : 075 -45 040 degrees QTc Int : 468 ms Normal sinus rhythm. Possible Left atrial enlargement Left axis deviation Abnormal ECG When compared with ECG of 05-SEP-2016 17:24, No significant change was found Unconfirmed Result
[2016-10-30 07:08] LABS: URINE CULTURE PL NEEDED? NO
[2016-10-30 07:14] LABS: BILIRUBIN URINE NEGATIVE (NEGATIVE); BLOOD URINE NEGATIVE (NEGATIVE); CLARITY SL. CLOUDY (CLEAR); COLOR YELLOW; GLUCOSE URINE NEGATIVE (NEGATIVE); LEUKOCYTES URINE TRACE (NEGATIVE); NITRITE URINE NEGATIVE (NEGATIVE); PROTEIN URINE NEGATIVE (NEGATIVE); UROBILINOGEN URINE NORMAL
[2016-10-30 07:21] LABS: URINE CRYSTAL TRIPLE PHOS PRESENT /HPF; URINE EPITHELIAL CELLS <10 /HPF (<10); URINE SOURCE CATH; URINE WBC <10 /HPF (<10)
[2016-10-30 07:35] LABS: MAGNESIUM 1.7 mg/dL (1.5-2.7)
--- NOTE | 2016-10-30 07:43 | Diag Imaging Result Doc PS360 ---
EXAM: CT HEAD W/O CONTRAST HISTORY: ams TECHNIQUE: CT of the head without contrast COMMENT: There is no evidence of mass effect, bleed, abnormal extra-axial fluid collection, or hydrocephalus. Compared to 09/05/2016 there has been no appreciable change. The calvarium is intact. The paranasal sinuses are clear. IMPRESSION: No evidence of acute intracranial disease. Electronically signed by Roldan Weeks 10/30/2016 7:40 AM
--- NOTE | 2016-10-30 07:44 | Diag Imaging Result Doc PS360 ---
EXAM: CHEST-1 VIEW HISTORY: ams TECHNIQUE: Erect AP chest COMMENT: There is increased interstitial markings generally and particularly in the upper lung zones. Compared to the previous study of 09/05/2016 there has been some improvement with regard to the left base. Overall, there has been very little change with comparison to 10/19/2015. There are multiple healing rib fractures bilaterally. IMPRESSION: Pulmonary fibrosis. Healing rib fractures. Electronically signed by Roldan Weeks 10/30/2016 7:42 AM
[2016-10-30 08:02] LABS: CK INDEX 2.1 (0.0-2.5); CK-MB 5.15 ng/mL (0.0-5.0)
[2016-10-30 08:31] LABS: CK INDEX 2.3 (0.0-2.5); CK-MB 5.82 ng/mL (0.0-5.0)
[2016-10-30] MEDS ORDERED: NS 1,000 ML IV ONE ×2 (08:41→11:13)
[2016-10-30] MEDS ORDERED: NS 0 ML ONE (08:42)
--- NOTE | 2016-10-30 12:03 | EKG Report ---
Test Performed on : 10/30/2016 08:18:34 AM Test Reason : ams Blood Pressure : / mmHG Vent. Rate : 077 BPM Atrial Rate : 077 BPM P-R Int : 158 ms QRS Dur : 108 ms QT Int : 408 ms P-R-T Axes : 079 -64 045 degrees QTc Int : 461 ms Normal sinus rhythm. Left axis deviation Abnormal ECG When compared with ECG of 30-OCT-2016 04:10, (Unconfirmed) No significant change was found Unconfirmed Result
[2016-10-30 12:31] LABS: IRON SATURATION 6 %; TIBC 372 ug/dL; TOTAL IRON 24 ug/dL (49-151); UNBOUND IRON 348 ug/dL (112-346)
--- NOTE | 2016-10-30 13:12 | Diag Imaging Result Doc PS360 ---
EXAM: CT THORAX/ABD/PELVIS W/O CONT HISTORY: abdominal pain/ sob TECHNIQUE: CT of the chest without contrast COMMENT: There is motion artifact. There are patchy groundglass opacities and air trapping. No focal consolidation to suggest pneumonia is present. There are no abnormal fluid collections. There is no evidence of significant adenopathy. There are healing fractures of the posterior right fifth, sixth, and seventh ribs. CT urogram without contrast: There is considerable motion artifact. There is no definite evidence of nephrolithiasis or hydronephrosis. The spleen is not enlarged. There are calcifications throughout the pancreas which suggests chronic pancreatitis. This was also demonstrated on the previous study of 10/21/2015. There has apparently been cholecystectomy. There is no definite evidence of bowel obstruction. The appendix is not clearly identifiable. There is no evidence of free fluid. There is no evidence of free air. IMPRESSION: Possibility of COPD and/or pulmonary fibrosis cannot be excluded. No evidence of acute disease in the abdomen or pelvis, however the study is badly degraded by patient motion. Electronically signed by Roldan Weeks 10/30/2016 1:10 PM
[2016-10-30] MEDS ORDERED: VENOFER 300 MG in NS 150 ML IV ONE (14:30)
[2016-10-30] MEDS: SOLU-MEDROL IV SCH ×2 (14:56→22:49)
[2016-10-30] MEDS: LASIX IV SCH (14:56)
[2016-10-30] MEDS: LEVAQUIN 500 MG/D5W 500 MG/100 ML IVPB IV SCH (14:57)
[2016-10-30] MEDS: DUONEB (A & A) INH SCH ×3 (15:10→23:24)
--- NOTE | 2016-10-30 18:00 | HISTORY AND PHYSICAL ---
PRIMARY CARE PHYSICIAN: None. CHIEF COMPLAINT: The patient was found by a neighbor, somnolent with an apparent overdose. Was admitted to the hospital 2 months ago for drug overdose also. HISTORY OF PRESENTING ILLNESS: This is a 50-year-old, female who presented to the emergency room after she was found by a neighbor, somnolent with an apparent drug overdose. It is noted that the patient was admitted approximately 2 months ago for a drug overdose also. It was reported that she used alcohol and cocaine, but her urine drug screen was presumptive positive for benzodiazepines, but it was not positive for cocaine. Her serum alcohol level showed none detected. Chest x-ray showed pulmonary fibrosis and healing rib fractures. CT of the head showed no evidence of an acute intracranial disease, so she is being admitted for further evaluation and treatment. On assessment on the floor, she is lying in the bed, moaning, unable to really answer questions appropriately, and is disoriented to person, place and time at this time. PAST MEDICAL HISTORY: Sarcoid spinal stenosis, pulmonary hypertension, fibromyalgia, CHF with a known ejection fraction of 60% to 65% in July 2015, restless legs syndrome, chronic constipation, GERD, COPD, anxiety and a recent drug overdose two months ago. PAST SURGICAL HISTORY: Hysterectomy and a cholecystectomy. FAMILY HISTORY: Noncontributory. SOCIAL HISTORY: She currently lives alone. She is a smoker, but it is unknown exactly how much and how long she has been a smoker, and drinks alcohol and uses illicit drugs, reportedly of cocaine. Again, her urine drug screen was negative at this time for cocaine. ALLERGIES: Butorphanol. HOME MEDICATIONS: We will hold her medications at this time and obtain a current list and restart those as appropriate, once she is more medically stable. LABORATORY DATA: White blood cell count of 7.20, hemoglobin 12.4, hematocrit 39.1, platelets 342,000. Sodium of 138, potassium 3.8, chloride 97, CO2 of 23, BUN of 15, creatinine 1.1, glucose 94, magnesium 1.7. Her iron level was 24, with a TIBC of 372. Her creatine kinase was 241, with a CK-MB of 5.15, with a negative troponin of 0.010. ProBNP of 312. TSH of 0.56. Urinalysis was negative. Urine drug screen was presumptive positive for benzodiazepines. Serum alcohol level showed none detected. Acetaminophen level was less than 1.2. Salicylate was 4.33. Head CT showed no evidence of an acute intracranial disease. Chest x-ray showed pulmonary fibrosis and healing rib fracture. CT of the chest, abdomen and pelvis showed possibility of COPD and/or pulmonary fibrosis could not be excluded. No evidence of acute disease in the abdomen or pelvis; however, the study is badly degraded by patient motion. EKG showed normal sinus rhythm at 77. REVIEW OF SYSTEMS: Unable to obtain at this time due to the patient's confusion. PHYSICAL EXAMINATION: VITAL SIGNS: Temperature 98.5 degrees, pulse 69, respirations 22, blood pressure 133/68, saturating 99% on room air. GENERAL: This is a 50-year-old, female who is lying in the bed , moaning and disoriented. Unable answer questions appropriately. HEENT: Normocephalic and atraumatic. Pupils are equal, round, reactive to light. Extraocular movements are intact. The oropharynx and nares are clear. NECK: Supple. LUNGS: Wheezing to bilateral lung gongora. Equal lung expansion. Chest wall movement is noted. O2 via nasal cannula currently in use. HEART: Regular rate and rhythm. No murmurs, rubs, or gallops. ABDOMEN: Soft, nontender, nondistended. Bowel sounds are present x4 quadrants. EXTREMITIES: No clubbing, cyanosis, or edema. NEUROLOGICAL: The cranial nerves 2 through 12 appear grossly intact. ASSESSMENT: 1. A presumed drug overdose. 2. An acute chronic obstructive pulmonary disease exacerbation. 3. An iron-deficiency anemia. 4. Tobacco abuse. PLAN: She is being admitted to the medical unit at [place], placed on telemetry , held n.p.o. at this time. Neuro checks q.4 hours for 24 hours. She has an indwelling Gregorio catheter. She was placed on Lovenox 40 mg subcutaneously q.24 for DVT prophylaxis, Lasix 40 mg IV q.12, Levaquin 500 mg IV q.24, with Solu-Medrol 40 mg IV q.8, and will be weaned as she improves. Normal saline at 150 mL an hour. She is being given Venofer 300 mg IV x1. We will recheck a CBC and a BMP in the a.m., and we will place on DuoNeb q.4 hours. Dictated by GEORGE Henderson for Sergei Medina MD cc: GEORGE Henderson MD I have seen and examined patient. Patient present with AMS secondary to presumed Drug overdose. I agree with the plan outline above. KANDICEQ TANVI
[2016-10-30] MEDS: HALDOL IV PRN ×2 (18:30→22:49)
[2016-10-31] MEDS: DUONEB (A & A) INH SCH ×5 (03:23→22:06)
[2016-10-31] MEDS: LASIX IV SCH ×2 (03:31→14:32)
[2016-10-31] MEDS: TYLENOL PO PRN (03:31)
[2016-10-31] MEDS: SOLU-MEDROL IV SCH ×4 (06:07→21:52)
[2016-10-31 06:35] LABS: BASO% 0.2 % (0.0-0.8); HEMATOCRIT 35.1 % (37.0-47.0); HEMOGLOBIN 10.9 g/dL (12.0-16.0); IMM GRAN# 0.01 X1000 (0.0-0.04); IMM GRAN% 0.2 % (0.0-0.5); LYMPH# 0.74 X1000 (1.2-3.4); LYMPH% 14.8 % (20.5-51.1); MANUAL DIFF NEEDED? NO; MCH 21.9 PG (27-31); MCHC 31.1 g/dL (33-37); MCV 70.6 FL (81-99); MONO# 0.13 X1000 (0.11-0.59); MONO% 2.6 % (1.7-9.3); MPV 10.4 FL (7.4-10.4); NEUT% 82.2 % (42.2-75.2); PLT 295 X1000 (130-400); RBC 4.97 XMIL (4.2-5.4)
[2016-10-31 06:57] LABS: AGAP 14; BUN 13 mg/dL (8-22); CALCIUM 8.8 mg/dL (8.8-10.2); CHLORIDE 93 mmol/L (98-107); COSMO 271; POTASSIUM 4.2 mmol/L (3.5-5.1); SODIUM 134 mmol/L (136-145); TCO2 27 mmol/L (25-35)
[2016-10-31] MEDS ORDERED: VENOFER 300 MG in NS 150 ML IV ONE ×2 (07:00→09:00)
[2016-10-31] MEDS: LOVENOX SUBQ SCH (09:58)
[2016-10-31] MEDS: LEVAQUIN 500 MG/D5W 500 MG/100 ML IVPB IV SCH (14:31)
--- NOTE | 2016-10-31 17:12 | PROGRESS NOTE ---
DATE: 10/31/2016 SUBJECTIVE: Patient is confused at present. She had called 911 asking how she got to the hospital, why she is here, who is going to take her home, and where is her home. OBJECTIVE: Vital Signs: Blood pressure is 119/63, with a heart rate of 86, respirations are 18, temperature is 98.2 degrees oral, O2 saturations of 97 to 99% on 2 L nasal cannula. Cardiovascular: Regular rate and rhythm. S1 and S2 appreciated. Pulmonary: Breath sounds are clear with no increased work of breathing noted. Gastrointestinal: Abdomen is soft, nontender, nondistended. Bowel sounds in all 4 quadrants. Extremities: No clubbing, cyanosis, or edema. Calves nontender. Pulses are palpable x4. LABS: WBC is 4.9, with a hemoglobin of 10.9, hematocrit 35.1, and platelets of 295,000. Sodium is 134, potassium is 4.2, BUN 13, creatinine 0.9, with a glucose of 152. ASSESSMENT: 1. Presumed drug overdose. 2. Acute on chronic chronic obstructive pulmonary disease exacerbation. 3. Iron deficiency anemia. 4. Tobacco abuse. PLAN: We will continue with her current regimen. We will continue with neuro checks. Dictated by GEORGE Escudero for Burt Dawn MD cc: GEORGE Escudero MD
[2016-10-31] MEDS: LIORESAL PO SCH (18:18)
--- NOTE | 2016-10-31 20:15 | PROGRESS NOTE ---
DATE: 10/31/2016 SUBJECTIVE: Patient without any complaints while I was in the room. However, a couple of hours after I left the room, she called 911 to inquire how did she get to the hospital and who brought her to the hospital. PHYSICAL: Vital signs: Temperature 98, pulse 92, respiratory rate 18, blood pressure 122/66. General: Patient is awake, alert. She appeared oriented upon talking to her this morning, but certainly became disoriented at some point later. HEENT: Normocephalic, atraumatic. VERNON. Neck: Supple. No JVD. CARDIOVASCULAR: Regular rate, no murmurs. Lungs: Chest clear. Nonlabored. Abdomen: Soft, nondistended. Extremities: Moves all extremities. Neurologic: No focal changes. ASSESSMENT: 1. Altered mental status. It was presumed that she had taken too many medications. However, this morning she declines drinking alcohol and declines taking cocaine or overusing her medications. 2. Chronic obstructive pulmonary disease with mild exacerbation. Improved. 3. Iron deficiency anemia. 4. Tobacco abuse. PLAN: At this point, the patient certainly may need rehab. We will cancel her discharge after she called 911 as she is still having issues with disorientation. We will continue to follow. Further orders as needed. cc: Burt Dawn MD
[2016-10-31] MEDS ORDERED: REQUIP PO SCH (21:00)
[2016-10-31] MEDS: KLONOPIN PO PRN (21:51)
[2016-10-31] MEDS: KLOR-CON PO SCH (21:52)
[2016-10-31] MEDS: ZANTAC PO SCH (21:52)
[2016-10-31] MEDS: SUBUTEX SL SCH (21:52)
[2016-10-31] MEDS: COREG PO SCH (21:52)
[2016-11-01] MEDS: LIORESAL PO SCH ×2 (00:34→08:29)
[2016-11-01] MEDS: TYLENOL PO PRN ×2 (00:34→06:39)
[2016-11-01] MEDS: LASIX IV SCH (01:18)
[2016-11-01] MEDS: DUONEB (A & A) INH SCH ×2 (03:37→09:00)
[2016-11-01] MEDS: SOLU-MEDROL IV SCH (06:39)
[2016-11-01] MEDS ORDERED: LINZESS PO SCH (07:30)
[2016-11-01] MEDS: SUBUTEX SL SCH (08:28)
[2016-11-01] MEDS: KLOR-CON PO SCH (08:29)
[2016-11-01] MEDS: LASIX PO SCH ×2 (08:29→08:31)
[2016-11-01] MEDS: ZANTAC PO SCH (08:29)
[2016-11-01] MEDS: COREG PO SCH (08:29)
[2016-11-01] MEDS: LOVENOX SUBQ SCH (08:31)
[2016-11-01 08:35] VITALS: BP 124/64
[2016-11-01] MEDS: KLONOPIN PO PRN (08:40)
[2016-11-01] MEDS ORDERED: CYMBALTA PO SCH (09:00)
[2016-11-01] MEDS ORDERED: REVATIO PO SCH (09:00)
--- NOTE | 2016-11-02 07:53 | DISCHARGE SUMMARY ---
ADMISSION DATE: 10/30/2016 DISCHARGE DATE: 11/01/2016 DIAGNOSES: 1. Presumed drug overdose. 2. Chronic obstructive pulmonary disease exacerbation. 3. Iron deficiency anemia. 4. Tobacco abuse. DIAGNOSTICS: 1. 10/30/2016, CT of the head revealed no evidence of acute intracranial disease. No mass effect, bleed, abnormal extra-axial fluid collection or hydrocephalus. 2. 10/30/2016 chest x-ray: Pulmonary fibrosis and healed rib fractures. 3. CT of the chest, abdomen, and pelvis revealed possibility of COPD and pulmonary fibrosis. No evidence of acute disease in the abdomen or pelvis. Patchy ground-glass opacities and air trapping. No focal consolidation to suggest pneumonia present. No abnormal fluid collections. Healing fractures of the posterior right 5th, 6th, and 7th ribs. HOSPITAL COURSE: Ms. Wiggins presented to the emergency room after being found somnolent by a neighbor. She does have a history of drug overdose being admitted 2 months prior. It was reported on admission that she used alcohol and cocaine, but her urine drug screen was presumptive positive for benzodiazepines, not cocaine, with a nondetected serum alcohol level. Neuro checks were performed, and she was NPO until she did not return to her normal state. Once awake, she did tolerate a regular diet with no difficulty. She was given steroids to taper with DuoNeb, which she tolerated well. The we did continue her home medications as appropriate. Her iron level was 24 with a TIBC of 372. She was given 300 mg of Venofer x1. Thankfully, she has improved and is ready for discharge. DISCHARGE PHYSICAL EXAMINATION: Cardiovascular: Regular rate and rhythm. S1 and S2 are appreciated. Pulmonary: Breath sounds - She does have some scattered expiratory wheezes that are much less than yesterday with no increased work of breathing noted. Gastrointestinal: Abdomen was soft, nontender, nondistended with bowel sounds in all 4 quadrants. Extremities: No clubbing, cyanosis, or edema. Calves are nontender. Pulses are palpable x4. Neurologic: She is alert and oriented x3 with cranial nerves 2-12 grossly intact. DISCHARGE MEDICATIONS: Cymbalta 60 mg daily, Micro-K 20 mEq b.i.d., Linzess 145 mcg daily, Daliresp 500 mcg daily, Requip 0.5 at bedtime, Phenergan 25 mg b.i.d., spironolactone 25 daily, Naprosyn 1 tablet b.i.d., Lasix 80 mg daily, Coreg 12.5 b.i.d., Revatio 20 mg t.i.d., Zantac 150 b.i.d., Combivent inhaler 1 puff q.6 hours. , Klonopin 1 mg t.i.d., Subutex 8 mg sublingual 4 times a day, baclofen 20 mg 3 times a day. She will be given prescriptions for a Medrol Dosepak as well as Levaquin 500 mg daily for 6 days. FOLLOWUP: 1. She needs to follow up with Dr. Davidson Govea, her primary care provider, in 1-[address] Hernandez, her interventional cardiologist, in 1 week. CONDITION ON DISCHARGE: She is being discharged home in stable condition with family members. TIME SPENT: This is a greater than 30 minute discharge. Dictated by GEORGE Escudero for Burt Dawn MD cc: GEORGE Escudero MD
--- NOTE | 2016-11-02 17:40 | ED EKG INTERP ---
This chart was entered by Shanelle Leon Scribe, acting as scribe for Riccardo Patino MD. EKG Interpretation - EKG Time of EKG reading by physician:: 09:52 EKG Read and Signed by:: Riccardo Patino EKG Interpretation (*Must complete 3 of following elements*): Normal Rate: 77 Rhythm: normal sinus rhythm [place]: left Comments: abnormal ECG Attestation - Physician/ RANDEE Attestation The physician spent face to face time with patient:: Yes Advanced Practice Provider documentation review:: Supervising physician onsite and consulted in the evaluation and care of this patient. The physician did have a face to face encounter with the patient. This chart was documented by the indicated scribe, (Shanelle Leon Scribe) and accurately reflects the services I performed and decisions made by me, Riccardo Patino MD, as attested by the provider's signature.
--- NOTE | 2016-11-03 03:42 | DISCHARGE SUMMARY ---
ADMISSION DATE: 10/30/2016 DISCHARGE DATE: 11/01/2016 ADDENDUM: The patient was seen in the hospital this morning and examined by myself. She is awake, alert, oriented. She was in no respiratory distress. She states she was ready to go home. In fact, she was standing at the side of the bed with her oxygen on, without any difficulty. She was walking around in the room as well. She does take oxygen at home and had this already setup. As for her admitting diagnosis of altered mental status, it certainly appears to be resolved at this point as she is awake, alert, oriented. cc: Burt Dawn MD
== END 2016-11-01 12:15 | disposition home or self-care (01) ==
LOC: P.ED 03:27 → SUATTDRO 13:29 → P.MEDSURG 13:29
PROVIDERS: ATTEND Family Medicine